=== PATIENT | female | born 1970 | race Hispanic/Latino ===

== ENCOUNTER 2017-05-09 16:55 | Emergency (ER) | payer SELFPAY ==
[2017-05-09] MEDS ORDERED: Ketorolac Tromethamine 30 MG/ML VIAL ONE (18:10)
[2017-05-09] MEDS ORDERED: Methocarbamol 500 MG TAB PO SCH (18:15)
--- NOTE | 2017-05-09 20:09 | RAD ---
LEFT KNEE: 05/09/17 HISTORY: Knee pain. Joint spaces are maintained. Minimal degenerative spurring is seen from the femoral condyles. Minimal degenerative spurring from the posterior patella. No fracture or acute abnormality. No evidence of j oint effusion. IMPRESSION: Minimal degenerative change noted. POS: [facility]
--- NOTE | 2017-05-09 20:17 | ULT ---
LEFT LOWER EXTREMITY VENOUS DUPLEX ULTRASOUND INCLUDING COLOR AND SPECTRAL DOPPLER IMAGIN05/09/17 HISTORY: 46-year-old female with history of left knee pain. Exam performed from groin to ankle including visua lized greater saphenous, common femoral, superficial femoral, profunda femoral, popliteal, trifurcati on, and posterior tibial vein regions. There is phasic flow at all levels with normal compressibility and normal augmentation. No intraluminal thrombus. IMPRESSION: No evidence for deep venous thrombosis. POS: [facility]
--- NOTE | 2017-05-13 00:26 | EKG ---
Test Reason : Blood Pressure : / mmHG Vent. Rate : 064 BPM Atrial Rate : 064 BPM P-R Int : 148 ms QRS Dur : 092 ms QT Int : 416 ms P-R-T Axes : 026 055 034 degrees QTc Int : 429 ms Normal sinus rhythm Normal ECG Confirmed by TAMANNA MOSES ([id number]), online editor WIN HADLEY ([id number]) on 05/13/2017 12:25:30 AM Referred By: Confirmed By:TAMANNA MOSES
== END 2017-05-09 21:27 | disposition home or self-care (01) ==
LOC: ERS 16:55
DX: M17.12 Unilateral primary osteoarthritis, left knee (principal); M25.512 Pain in left shoulder; E11.9 Type 2 diabetes mellitus without complications; E03.9 Hypothyroidism, unspecified; E78.5 Hyperlipidemia, unspecified; I10 Essential (primary) hypertension; J45.909 Unspecified asthma, uncomplicated; F32.9 Major depressive disorder, single episode, unspecified; F17.210 Nicotine dependence, cigarettes, uncomplicated; Z79.82 Long term (current) use of aspirin; Z79.899 Other long term (current) drug therapy; Z79.84 Long term (current) use of oral hypoglycemic drugs
CPT/HCPCS: 93005; 96374; J1885

== ENCOUNTER 2017-05-29 10:33 | Observation (INO) | payer SELFPAY ==
[2017-05-29 10:56] LABS: #Basophils 0.1 thou/uL (0.0-0.2); #Eosinphils 0.1 thou/uL (0.0-0.7); #Lymphocytes 2.4 thou/uL (1.20-3.40); #Monocytes 0.5 thou/uL (0.11-0.59); #Neutrophils 4.5 thou/uL (1.40-6.50); %Eosinophils 1.4 % (0.0-10.0); %Lymphocytes 31.4 % (21.0-51.0); %Neutrophils 60.2 % (42.0-75.0); Hemoglobin 14.1 g/dL (12.0-16.0); Mean Corpuscular HGB CONC 33.8 g/dL (32.0-36.0); Mean Corpuscular Hemoglobin 31.6 pg (27.0-31.0); Mean Corpuscular Volume 93.6 fl (81.0-99.0); Mean Platelet Volume 10.1 fL (7.4-10.4); Platelet Count 188 thou/uL (130-400); RBC Distribution Width 12.2 % (11.5-14.5); Red Blood Cell (RBC) Count 4.47 mill/uL (4.20-5.40); White Blood Cell (WBC) Count 7.5 thou/uL (4.8-10.8)
[2017-05-29 11:05] LABS: PTT 31.1 SEC (22.9-36.1); Prothrombin Time 13.3 SEC (12.0-14.7)
[2017-05-29 11:10] LABS: ALT (SGPT) 24 U/L (8-55); AST (SGOT) 16 U/L (5-34); Albumin 4.5 g/dL (3.5-5.0); Alkaline Phosphatase 94 U/L (40-150); Anion Gap 12 mmol/L (10-20); BUN (Urea Nitrogen) 11 mg/dL (7.0-18.7); Bilirubin, Total 0.4 mg/dL (0.2-1.2); Calc. Creatinine Clearance 0 mL/min (70-130); Calcium 9.4 mg/dL (7.8-10.44); Carbon Dioxide 22 mmol/L (22-29); Chloride 112 mmol/L (98-107); Estimated GFR-MDRD Greater than 90; Glucose 98 mg/dL (70-105); Potassium 4.1 mmol/L (3.5-5.1); Protein, Total 7.5 g/dL (6.0-8.3); Sodium 142 mmol/L (136-145)
[2017-05-29 11:14] LABS: CKMB 1.8 ng/mL (0-6.6); Troponin I Less than 0.010 ng/mL (< 0.028)
--- NOTE | 2017-05-29 11:30 | CT ---
CT BRAIN WITHOUT CONTRAST: HISTORY: Syncope. Left arm and leg weakness. Diabetes. Stroke alert. FINDINGS: No evidence of infarct, hemorrhage, midline shift, or abnormal extraaxial fluid collections are seen. The ventricular size is normal, and the basilar cisterns are patent. The bony calvarium is intact. The visualized paranasal sinuses and mastoid air cells are well aerated. IMPRESSION: No CT evidence of acute intracranial process. The findings were called over the telephone to the ER physician, Dr. Carvajal, at 10:44 a.m. CODE CR POS: [facility]
--- NOTE | 2017-05-29 12:24 | RAD ---
CHEST ONE VIEW: History: 46-year-old female with syncope, left sided weakness. FINDINGS: Monitor leads overlie the chest. Heart size is within normal limits. The lungs are clear. No pneumoni a, edema, pleural effusion or other acute process. POS: [facility]
[2017-05-29 13:52] LABS: Bilirubin Negative (Negative); Blood, Urine Negative (Negative); Clarity CLEAR (Clear); Glucose, Urine (Dipstick) Negative (Negative); Leukocyte Negative (Negative); Nitrite Negative (Negative); Protein, Urine (Dipstick) Negative (Neg-Trace); Specific Gravity, Urine 1.007 (1.002-1.036); Urobilinogen 0.2 mg/dL (0.2-1.0)
[2017-05-29 14:38] LABS: Troponin I Less than 0.010 ng/mL (< 0.028)
--- NOTE | 2017-05-29 15:04 | HP ---
PRIMARY CARE PHYSICIAN: Migdalia Gardner, Nurse Practitioner. REASON FOR ADMISSION: Rule out acute coronary syndrome and rule out stroke. The patient admitted fo r chest pain, syncope and left-sided weakness. HISTORY OF PRESENT ILLNESS: A 46-year-old female, who has underlying history of hypertensio n, dyslipidemia, hypothyroidism, diabetes type 2, and glaucoma. She also has morbid obesity. She molina d an argument at home. Subsequently, she was having chest pain and she passed out at home. She rega ined consciousness in few minutes. When she regained consciousness, at that time, the patient was molina ving left-sided upper and lower extremity weakness. Paramedics noticed that the patient was having l eft-sided weakness, but it was rapidly improved when she was transferred to the hospital. Paramedics were called by family member at home. The patient reported that all the symptoms started after a st ressful argument. Her chest discomfort was about 7/10 in intensity, without any radiation, without a ny association of nausea, vomiting, diaphoresis. She did not have any palpitation, but she was feeli ng dizzy and she passed out. When she regained consciousness, at that time she was perfectly normal. She did not have any seizure type of activity. She did not have any incontinence. The patient als o has left shoulder pain and because of left shoulder pain, she was having difficulty moving left upp er extremity because of pain. In the emergency room, routine blood tests showed normal cardiac enzymes, normal BNP and other blood tests including CBC and BMP came back normal. She also had chest x-ray as well as CT brain and echoc ardiogram, all came back normal. In the emergency room, the patient was back to baseline, but she wa s having difficulty lifting left upper extremity because of left shoulder pain. She denies any traum a. She denies any injury, but she reports that she has arthritis in her shoulder as well as other hola int arthritis and that causing her joint pain. She denies any UTI symptoms. She denies any fever or chills. She denies any previous workup for hea rt. She denies any exertion related chest pain, palpitation or syncope. She denies any constipation , diarrhea, melena or hematochezia. She denies any abdominal pain. She denies any fever or flu-like illness. REVIEW OF SYSTEMS: The following complete review of systems was negative, unless otherwise mentioned in the HPI or below: Constitutional: Weight loss or gain, ability to conduct usual activities. Sk in: Rash, itching. Eyes: Double vision, pain. ENT/Mouth: Nose bleeding, neck stiffness, pain, te nderness. Cardiovascular: Palpitations, dyspnea on exertion, orthopnea. Respiratory: Shortness of breath, wheezing, cough, hemoptysis, fever or night sweats. Gastrointestinal: Poor appetite, abdom inal pain, heartburn, nausea, vomiting, constipation, or diarrhea. Genitourinary: Urgency, frequenc y, dysuria, nocturia. Musculoskeletal: Pain, swelling. Neurologic/Psychiatric: Anxiety, depressio n. Allergy/Immunologic: Skin rash, bleeding tendency. Please see my HPI for pertinent positive and negative. All other review of systems reviewed and nega tive except as mentioned in the HPI. ALLERGIES: No known drug allergies. CURRENT HOME MEDICATIONS: Aspirin 81 mg p.o. daily, Lipitor 40 mg p.o. at bedtime, Celexa 30 mg p.o. daily, gabapentin 100 mg 3 times daily, Atarax 25 mg t.i.d., Synthroid 37.5 mcg p.o. daily, metformi n 500 mg p.o. daily, chlorthalidone 25 mg p.o. daily, Xalatan eyedrops at bedtime, nitroglycerin as n eeded, timolol maleate ophthalmic drop twice daily, ibuprofen 600 mg q.6 hourly p.r.n., Robaxin 500 m g p.o. q.6 hourly p.r.n. PAST MEDICAL HISTORY: Morbid obesity, diabetes type 2, hypothyroidism, hypertension, dyslipidemia, a sthma, history of CVA, glaucoma, osteoarthritis, chronic low back pain. PAST SURGICAL HISTORY: Right knee surgery and appendicectomy. PAST PSYCHIATRIC HISTORY: Anxiety and depression. SOCIAL HISTORY: The patient denies any alcohol abuse, but she smokes about 1 pack per day. She makeda es any other illicit drug abuse. FAMILY HISTORY: Diabetes and hypertension runs among several family members. EMERGENCY ROOM COURSE: Reviewed. PHYSICAL EXAMINATION: VITAL SIGNS: On arrival, blood pressure 165/74, pulse 66, respiratory rate 26, temperature 98.4, sat uration 96% on room air, weight 113.5 kilograms. GENERAL: The patient is currently alert, awake, no obvious acute distress. HEAD: Normocephalic, atraumatic. EYES: Pupils round, reactive to light. Extraocular muscles are intact. ENT: Oropharynx within normal limits. Moist mucous membranes. No oral lesion, no pharyngeal erythe ma, no exudate. NECK: Supple, no JVD, no thyromegaly, no carotid bruit, no jugular venous distention. LUNGS: Clear to auscultation without any rhonchi or rales. CARDIAC: S1, S2 regular. No murmur, no gallop, no rub. ABDOMEN: Soft, bowel sounds present, nontender, nondistended. No organomegaly, no mass, no suprapub ic tenderness. Obesity is limiting examination. BACK: Unremarkable. No CVA tenderness. EXTREMITIES: Upper extremity: The patient does have restriction of range of motion at left shoulder because of arthritis. Otherwise, all other joints are normal. Lower extremity: Passive movement o f all joints are normal. No edema. Good peripheral pulsation. SKIN: No skin rash. HEMATOLOGIC: No lymphadenopathy. PSYCHIATRIC: Normal affect. NEUROLOGIC: The patient is alert, oriented x3. Cranial nerves II-XII intact. Motor is 5/5 in all f our limbs. Sensation is bilaterally symmetrical. No pronators drift. The patient's left-sided diff iculty moving is related with arthritis pain. Speech is normal. Reflexes are symmetrical. Plantar bilateral flexor. No cerebellar sign. SIGNIFICANT LABS: EKG showing normal sinus rhythm, within normal limit. CT brain based on my review , no acute intracranial process. Chest x-ray based on my review, no acute cardiopulmonary process. CBC: WBC 7.5, hemoglobin 14.1, platelet 188. INR is 1.0. BMP: Sodium 142, potassium 4.1, chloride 112, carbon dioxide 22, anion gap 12, BUN 11, creatinine 0.60, glucose 98, calcium 9.4, magnesium 2. 0. LFT: AST 16, ALT 24, alkaline phosphatase 94, albumin 4.5, lipase 12, CK-MB 1.8, troponin I less than 0.010. BNP is 27.0. ASSESSMENT AND PLAN: 1. Chest pain. The patient's chest pain description is atypical, though she has several risk factor s for coronary artery disease. Her probability of coronary artery disease is low. At this point, EK G is normal and cardiac enzymes are negative. Given acute onset of chest pain, we will keep her in [facility] for observation and we will do serial cardiac enzymes x3 to rule out acute coronary syndr ome. Tomorrow, we will perform pharmacological stress test to rule out underlying ischemia. We will check lipid profile for risk stratification. Meanwhile, we will continue with nitropatch q.8 hourly and will monitor on telemetry floor. 2. Syncope. We will obtain echocardiography and we will monitor on telemetry floor for any kind of arrhythmia, most likely vasovagal syncope. We will check orthostatic vitals to rule out any orthosta tic hypotension. 3. Left upper and lower extremity weakness consistent with transient ischemic attack versus rule out cerebrovascular accident. At this point, the patient will be observed on stroke floor. We will do neuro check q.4 hourly. We will obtain MRI brain to rule out any acute intracranial process. The pa tient will be kept on aspirin therapy. 4. Dyslipidemia. Check lipid profile tomorrow and continue Lipitor 40 mg p.o. at bedtime. 5. Anxiety and depression. We will continue Ativan 1 mg q.6 hourly p.r.n. and Celexa 30 mg p.o. sarahi ly. 6. Chronic low back pain as well as osteoarthritis. Continue gabapentin 100 mg 3 times daily and ib uprofen on a p.r.n. basis. 7. Diabetes type 2. We will continue metformin 500 mg p.o. daily. Diabetic diet will be given, ins ulin as per sliding scale per protocol. 8. Hypothyroidism. We will continue Synthroid 37.5 mcg p.o. daily. 9. Glaucoma. We will continue Xalatan eyedrops as well as timolol ophthalmic drops as per home dosa ge. 10. Hypertension. We will continue nitropatch q.8 hourly along with chlorthalidone 25 mg p.o. daily . 11. Morbid obesity. Dietary education given, weight loss education given. Healthy lifestyle measur es discussed with the patient. 12. Deep venous thrombosis prophylaxis not needed because we are expecting discharge in 24 hours. 13. Gastrointestinal prophylaxis, Pepcid 20 mg p.o. b.i.d. 14. Code status: The patient is FULL CODE. The patient does not have any surrogate decision maker. 15. Asthma, mild intermittent. We will continue with albuterol nebulization as needed basis. 16. Tobacco abuse disorder. Smoking cessation counseling given. Healthy lifestyle measures discuss ed with the patient. Disposition plan based on clinical course, likely pending above-mentioned investigation result. Plan of care discussed with the patient and other family member at bedside in the emergency room.
[2017-05-29] MEDS ORDERED: Ondansetron HCl/PF 4 MG/2 ML Vial IVP PRN (15:11)
[2017-05-29] MEDS ORDERED: Ibuprofen 600 MG TAB PO PRN (15:11)
[2017-05-29] MEDS ORDERED: Milk Of Magnesia 30 ML UDCUP PO PRN (15:11)
[2017-05-29] MEDS ORDERED: Mag-Al 1200 mg/1200 mg/30 ML UDCUP PO PRN (15:11)
[2017-05-29] MEDS ORDERED: Eucerin (Mineral Oil/Petrolatum,White) 30 gm Jar TOP PRN (15:11)
[2017-05-29] MEDS ORDERED: HumaLOG 300 UNITS/3 ML VIAL SC PRN ×2 (15:11)
[2017-05-29] MEDS ORDERED: Dextrose 50% Abboject 50 ML SYRINGE SLOW IVP PRN (15:11)
[2017-05-29] MEDS ORDERED: Dextrose 5% in Water 1,000 ML IV PRN (15:11)
[2017-05-29] MEDS ORDERED: Ondansetron ODT 4 MG TAB PO PRN (15:11)
[2017-05-29] MEDS ORDERED: Sodium Chloride 0.65% Nasal 44 ML BOT EA NARE PRN (15:11)
[2017-05-29] MEDS ORDERED: Senokot 8.6 MG TAB PO PRN (15:11)
[2017-05-29] MEDS ORDERED: Loperamide HCl 2 MG CAP PO PRN (15:11)
[2017-05-29] MEDS ORDERED: Artificial Tears 18 DROP/0.9 ML EA EYE PRN (15:11)
[2017-05-29] MEDS ORDERED: Chloraseptic Spray 180 ml Bottle PO PRN (15:11)
[2017-05-29] MEDS ORDERED: hydrOXYzine 25 MG TAB PO PRN (15:11)
[2017-05-29] MEDS ORDERED: Loratadine 10 MG TAB PO PRN (15:11)
[2017-05-29] MEDS ORDERED: Zolpidem Tartrate 5 MG TAB PO PRN (15:11)
[2017-05-29] MEDS ORDERED: Diabetic Tussin 200 MG/10 ML UDCUP PO PRN (15:11)
[2017-05-29] MEDS ORDERED: Methocarbamol 500 MG TAB PO PRN (15:11)
[2017-05-29] MEDS ORDERED: Nitroglycerin 0.4 MG TAB (25 Tab Bottle) PO PRN (15:11)
[2017-05-29] MEDS ORDERED: HYDROcodone/Acetaminophen 10/325 mg Tablet PO PRN (15:11)
[2017-05-29] MEDS: Nitroglycerin 2% Ointment 1 INCH/1 GM Packet TOP SCH ×2 (16:03→23:58)
--- NOTE | 2017-05-29 16:23 | MRI ---
MRI OF BRAIN WITHOUT CONTRAST: 05/29/17 HISTORY: TIA, syncope with left sided weakness. FINDINGS: Correlation is made with CT scan performed at 10:40 a.m. earlier today. No restricted diffusion is seen. No evidence of infarct, hemorrhage, midline shift or abnormal extra- axial fluid collections are noted. Ventricular size is normal and the basilar cisterns patent. There is fluid in the left mastoid air cells. IMPRESSION: No evidence of acute intracranial process. POS: [facility]
[2017-05-29 17:38] VITALS: BMI 43.7
[2017-05-29 18:27] LABS: Troponin I Less than 0.010 ng/mL (< 0.028)
[2017-05-29] MEDS: Atorvastatin Calcium 40 MG TAB PO SCH (20:41)
[2017-05-29] MEDS: Acetaminophen 325 MG TAB PO PRN (20:41)
[2017-05-29] MEDS: Gabapentin 100 MG CAP PO SCH (20:41)
[2017-05-29] MEDS: Famotidine 20 MG TAB PO SCH (20:41)
[2017-05-29] MEDS: Latanoprost 0.005% Ophth Soln 2.5 ml Bottle EA EYE SCH (20:41)
[2017-05-29] MEDS: Timolol 0.5% Ophth Soln 5 ml Bottle EA EYE SCH (22:28)
[2017-05-30] MEDS: Levothyroxine Sodium 75 MCG TAB PO SCH (06:18)
[2017-05-30 06:19] LABS: Cardiac Risk 3.5 (Less than 4.5)
[2017-05-30] MEDS: Nitroglycerin 2% Ointment 1 INCH/1 GM Packet TOP SCH ×2 (09:10→15:00)
--- NOTE | 2017-05-30 10:05 | PDOC.PN ---
- Subjective Encounter Start Date: 05/30/17 Encounter Start Time: 07:00 -: old records requested/rev Patient seen and examined. No new complaints. No overnight events no chest pain, no motor weakness - Objective Resuscitation Status: Resuscitation Status FULL:Full Resuscitation MAR Reviewed: Yes Vital Signs & Weight: Vital Signs (12 hours) Temp Pulse Resp BP Pulse Ox 05/30/17 08:00 97.6 F 56 L 20 157/70 H 97 05/30/17 04:00 97.5 F L 62 20 141/79 H 98 05/30/17 00:00 98.0 F 60 20 158/83 H 98 05/29/17 22:28 65 Weight Weight 239 lb I&O: 05/29/17 05/30/17 05/31/17 06:59 06:59 06:59 Intake Total 700 Balance 700 Result Diagrams: 05/29/17 10:45 05/29/17 10:45 Additional Labs: Accuchecks 05/29/17 05/29/17 21:06 17:03 POC Glucose 139 H 87 Radiology Reviewed by me: Yes (mri- normal) EKG Reviewed by me: Yes (nsr) Phys Exam - Physical Examination Constitutional: NAD HEENT: PERRLA, moist MMs, sclera anicteric Neck: no JVD, supple Respiratory: no wheezing, no rales, no rhonchi Cardiovascular: RRR, no significant murmur, no rub Gastrointestinal: soft, non-tender, no distention, positive bowel sounds obesity+ Musculoskeletal: no edema, pulses present Neurological: non-focal, normal sensation, moves all 4 limbs Lymphatic: no nodes Psychiatric: normal affect, A&O x 3 Skin: no rash, normal turgor Dx/Plan (1) Chest pain Code(s): R07.9 - CHEST PAIN, UNSPECIFIED Status: Acute Comment: today stress test to rule out ischemia (2) Syncope Code(s): R55 - SYNCOPE AND COLLAPSE Status: Acute Qualifiers: Syncope type: vasovagal syncope Qualified Code(s): R55 - Syncope and collapse Comment: mostly vasovagal, no arrythmia (3) TIA (transient ischemic attack) Status: Acute Comment: mri- negative, ruled out CVA (4) Anxiety and depression Code(s): F41.9 - ANXIETY DISORDER, UNSPECIFIED; F32.9 - MAJOR DEPRESSIVE DISORDER, SINGLE EPISODE, UNSPECIFIED Status: Chronic (5) Asthma Code(s): J45.909 - UNSPECIFIED ASTHMA, UNCOMPLICATED Status: Chronic (6) Diabetes type 2, controlled Code(s): E11.9 - TYPE 2 DIABETES MELLITUS WITHOUT COMPLICATIONS Status: Chronic (7) Dyslipidemia Code(s): E78.5 - HYPERLIPIDEMIA, UNSPECIFIED Status: Chronic (8) Hypertension Code(s): I10 - ESSENTIAL (PRIMARY) HYPERTENSION Status: Chronic (9) Hypothyroidism Code(s): E03.9 - HYPOTHYROIDISM, UNSPECIFIED Status: Chronic (10) Tobacco abuse Code(s): Z72.0 - TOBACCO USE Status: Chronic Comment: counselled today (11) Osteoarthritis Code(s): M19.90 - UNSPECIFIED OSTEOARTHRITIS, UNSPECIFIED SITE Status: Chronic Qualifiers: Osteoarthritis location: shoulder Laterality: left (12) Morbid obesity with BMI of 40.0-44.9, adult Code(s): E66.01 - MORBID (SEVERE) OBESITY DUE TO EXCESS CALORIES; Z68.41 - BODY MASS INDEX (BMI) 40.0-44.9, ADULT Status: Chronic - Plan cont current plan of care * today echo * stress test if negative, will consider discharge * medication reviewed as below * symptomatic treatment. Review of Systems - Review of Systems Eyes: negative: Pain, Vision Change, Conjunctivae Inflammation, Eyelid Inflammation, Redness, Other ENT: negative: Ear Pain, Ear Discharge, Nose Pain, Nose Discharge, Nose Congestion, Mouth Pain, Mouth Swelling, Throat Pain, Throat Swelling, Other Respiratory: negative: Cough, Dry, Shortness of Breath, Hemoptysis, SOB with Excertion, Pleuritic Pain, Sputum, Wheezing Cardiovascular: negative: chest pain, palpitations, orthopnea, paroxysmal nocturnal dyspnea, edema, light headedness, other Gastrointestinal: negative: Nausea, Vomiting, Abdominal Pain, Diarrhea, Constipation, Melena, Hematochezia, Other Genitourinary: negative: Dysuria, Frequency, Incontinence, Hematuria, Retention , Other Musculoskeletal: Shoulder Pain. negative: Neck Pain, Arm Pain, Back Pain, Hand Pain, Leg Pain, Foot Pain, Other Skin: negative: Rash, Lesions, Medhat, Bruising, Other - Medications/Allergies Allergies/Adverse Reactions: Allergies Allergy/AdvReac Type Severity Reaction Status Date / Time No Known Allergies Allergy Verified 05/29/17 15:47 Medications: Current Medications Acetaminophen (Tylenol) 650 mg PO Q4H PRN PRN Reason: Headache/Fever or Pain Last Admin: 05/29/17 20:41 Dose: 650 mg Hydrocodone Bitart/Acetaminophen ([place] 10/325) 1 tab PO Q4H PRN PRN Reason: Moderate Pain (4-6) Al Hydroxide/Mg Hydroxide (Maalox) 30 ml PO Q6H PRN PRN Reason: Heartburn or Indigestion Artificial Tears (Tears Naturale) 0 drop EA EYE PRN PRN PRN Reason: Dry Eyes Aspirin (Aspirin) 325 mg PO DAILY [facility] Atorvastatin Calcium (Lipitor) 40 mg PO HS [facility] Last Admin: 05/29/17 20:41 Dose: 40 mg Chlorthalidone (Hygroton) 25 mg PO DAILY [facility] Citalopram Hydrobromide (Celexa) 30 mg PO DAILY [facility] Dextrose/Water (Dextrose 50%) 25 gm SLOW IVP PRN PRN PRN Reason: Hypoglycemia Famotidine (Pepcid) 20 mg PO BID [facility] Last Admin: 05/29/17 20:41 Dose: 20 mg Gabapentin (Neurontin) 100 mg PO TID [facility] Last Admin: 05/29/17 20:41 Dose: 100 mg Glucagon (Glucagon) 1 mg IM PRN PRN PRN Reason: Hypoglycemia Guaifenesin (Robitussin Sf) 200 mg PO Q4H PRN PRN Reason: Cough Hydralazine HCl (Apresoline) 10 mg SLOW IVP Q4H PRN PRN Reason: Systolic BP > 180 Hydroxyzine HCl (Atarax) 25 mg PO Q8H PRN PRN Reason: Itching Dextrose/Water (D5w) 1,000 mls @ 0 mls/hr IV .Q0M PRN; As Directed PRN Reason: Hypoglycemia Ibuprofen (Motrin) 600 mg PO Q6H PRN PRN Reason: Fever>101/(Mi/Mod/Sev) Pain Insulin Human Lispro (Humalog) 0 units SC .MODERATE SLIDING SC PRN PRN Reason: Moderate Correctional Scale Insulin Human Lispro (Humalog) 0 units SC .BEDTIME SLIDING SC PRN PRN Reason: Bedtime Correctional Scale Latanoprost (Xalatan 0.005% Oph Soln) 1 drop EA EYE [facility] Last Admin: 05/29/17 20:41 Dose: 1 drp Levothyroxine Sodium (Synthroid) 37.5 mcg PO 0600 [facility] Last Admin: 05/30/17 06:18 Dose: 37.5 mcg Loperamide HCl (Imodium) 2 mg PO PRN PRN PRN Reason: Diarrhea/Loose Stools Loratadine (Claritin) 10 mg PO DAILYPRN PRN PRN Reason: Sinus Symptoms Magnesium Hydroxide (Milk Of Magnesium) 30 ml PO DAILYPRN PRN PRN Reason: Constipation Metformin HCl (Glucophage) 500 mg PO Q[facility] Methocarbamol (Robaxin) 500 mg PO QID PRN PRN Reason: Muscle Spasm Mineral Oil/White Petrolatum (Eucerin Cream) 0 gm TOP BIDPRN PRN PRN Reason: Dry Skin Nitroglycerin (Nitro-Bid 2% Ointment) 0.5 inch TOP Q8H [facility] Last Admin: 05/30/17 09:10 Dose: Not Given Nitroglycerin (Nitrostat) 0.4 mg PO Q5MIN PRN PRN Reason: Chest Pain Ondansetron HCl (Zofran Odt) 4 mg PO Q6H PRN PRN Reason: Nausea/Vomiting Ondansetron HCl (Zofran) 4 mg IVP Q6H PRN PRN Reason: Nausea/Vomiting Phenol (Chloraseptic [place] 180 Ml Bot) 0 ml PO PRN PRN PRN Reason: Sore Throat Senna (Senokot) 2 tab PO HSPRN PRN PRN Reason: Constipation Sodium Chloride ([place] Nasal [place] 0.65%) 0 ml EA NARE QIDPRN PRN PRN Reason: Nasal Congestion Timolol Maleate (Timoptic 0.5% Ophth Soln) 1 drop EA EYE BID [facility] Last Admin: 05/29/17 22:28 Dose: 1 drp Zolpidem Tartrate (Ambien) 5 mg PO HSPRN PRN PRN Reason: Insomnia
[2017-05-30] MEDS: Citalopram 10 MG TAB PO SCH (12:30)
[2017-05-30] MEDS: metFORMIN 500 MG TAB PO SCH (12:30)
[2017-05-30] MEDS: Aspirin 325 MG TAB PO SCH (12:30)
[2017-05-30] MEDS: Famotidine 20 MG TAB PO SCH ×2 (12:31→21:23)
[2017-05-30] MEDS: Gabapentin 100 MG CAP PO SCH ×3 (12:31→21:24)
[2017-05-30] MEDS: Timolol 0.5% Ophth Soln 5 ml Bottle EA EYE SCH ×2 (12:31→21:23)
[2017-05-30] MEDS: Acetaminophen 325 MG TAB PO PRN (12:32)
[2017-05-30] MEDS: Chlorthalidone 25 MG TAB PO SCH (13:17)
[2017-05-30] MEDS: Latanoprost 0.005% Ophth Soln 2.5 ml Bottle EA EYE SCH (21:23)
[2017-05-30] MEDS: Atorvastatin Calcium 40 MG TAB PO SCH (21:24)
[2017-05-30] MEDS: hydrALAZINE 20 MG/ML VIAL SLOW IVP PRN (21:24)
[2017-05-31] MEDS: Nitroglycerin 2% Ointment 1 INCH/1 GM Packet TOP SCH ×3 (00:06→15:26)
[2017-05-31] MEDS: Levothyroxine Sodium 75 MCG TAB PO SCH (05:17)
[2017-05-31] MEDS: Acetaminophen 325 MG TAB PO PRN ×2 (05:26→10:37)
[2017-05-31] MEDS: Chlorthalidone 25 MG TAB PO SCH (11:41)
[2017-05-31] MEDS: Aspirin 325 MG TAB PO SCH (11:41)
[2017-05-31] MEDS: metFORMIN 500 MG TAB PO SCH (11:41)
[2017-05-31] MEDS: Famotidine 20 MG TAB PO SCH (11:42)
[2017-05-31] MEDS: Timolol 0.5% Ophth Soln 5 ml Bottle EA EYE SCH (11:42)
[2017-05-31] MEDS: Gabapentin 100 MG CAP PO SCH ×2 (11:42→15:26)
[2017-05-31] MEDS: Citalopram 10 MG TAB PO SCH (11:42)
[2017-05-31] MEDS: hydrALAZINE 20 MG/ML VIAL SLOW IVP PRN (11:59)
--- NOTE | 2017-05-31 13:13 | NM ---
CARDIAC SPECT: HISTORY: A 46-year-old female with chest pain, hypertension, hyperlipidemia, syncope, asthma, and diabetes. TECHNIQUE: A myocardial perfusion scan was performed using the single-isotope 2-day protocol with 31 mCi Technet ium 99m sestamibi injected intravenously for rest and stress images. Pharmacologic stress with Gautam can was monitored and interpreted by cardiology. FINDINGS: Homogeneous tracer distribution is seen in the myocardial segments on stress and rest images without fixed or reversible defects. GATED SPECT LVEF: 70%. WALL MOTION EXAM: Normal. IMPRESSION: Normal myocardial perfusion scan. POS: [facility]
[2017-05-31] MEDS ORDERED: Regadenoson 0.4 MG/5 ML SYRINGE ONE (14:41)
[2017-05-31] MEDS ORDERED: hydrOXYzine 25 MG TAB PO PRN (15:08)
[2017-05-31] MEDS ORDERED: Ibuprofen 600 MG TAB PO PRN (15:08)
[2017-05-31] MEDS ORDERED: Nitroglycerin 0.4 MG TAB (25 Tab Bottle) SL PRN (15:08)
[2017-05-31] MEDS ORDERED: Methocarbamol 500 MG TAB PO PRN (15:08)
[2017-05-31] MEDS ORDERED: Non-Formulary Item 1 EACH (Ondansetron Hcl [Zofran] 4 MG) PO PRN (15:08)
[2017-05-31 15:41] VITALS: BP 140/72; TEMP 97.7
[2017-05-31] MEDS ORDERED: metFORMIN 500 MG TAB PO SCH (17:00)
[2017-05-31] MEDS ORDERED: Gabapentin 100 MG CAP PO SCH (21:00)
--- NOTE | 2017-05-31 23:56 | DIS ---
DATE OF ADMISSION: 05/29/2017 DATE OF DISCHARGE: 05/31/2017 PRIMARY CARE PROVIDER: Migdalia Gardner. DISCHARGE DIAGNOSES: 1. Atypical chest pain. 2. Syncope. 3. Left-sided weakness. CONDITION OF PATIENT ON THE DAY OF DISCHARGE: Stable. I assessed Ms. Hager on the day of discharg e. She denies any chest pain or shortness of breath. Vital signs are stable. S1 and S2 are heard, regular. Lungs are clear to auscultation bilaterally. INVESTIGATIONS DURING THIS HOSPITALIZATION: 1. Noncontrast CT scan of the brain on 05/29/2017, which did not show any acute intracranial process . 2. MRI of the brain on 05/29/2017, which did not show any acute intracranial process. 3. Nuclear stress test on 05/30/2017, which was normal. 4. A 2D echocardiogram on 05/30/2017, which showed left ventricular ejection fraction of 55-60%, mil dly dilated left atrium, mild mitral regurgitation and mild tricuspid regurgitation. DISCHARGE MEDICATIONS: Aspirin 81 mg daily, Lipitor 40 mg daily, chlorthalidone 25 mg daily, Celexa 30 mg daily, gabapentin 100 mg 3 times a day, Atarax 25 mg as needed, Motrin 600 mg as needed, Synthr oid 25 mcg daily, metformin 500 mg 2 times a day, methocarbamol 500 mg as needed, nitroglycerin as ne eded and Zofran as needed. HOSPITAL COURSE: Ms. Hager is a pleasant 46-year-old lady who was admitted to [facility] on 05/29/2017 for atypical chest pain, syncope as well as left-sided weakness. She had a normal D-dimer during this hospitalization. She underwent nuclear stress test, which was normal. MRI of the brain did not reveal any acute intracranial process. She is advised to have carotid Dopp lers through her primary care provider as an outpatient. During this hospitalization, she had trigly cerides 154, cholesterol 118, LDL cholesterol 53, and HDL cholesterol 34. Many thanks for allowing me to participate in your patient's care. Please feel free to contact me wi th any questions or concerns. DISCHARGE DESTINATION: Home.
[2017-06-01] MEDS ORDERED: Levothyroxine Sodium 25 MCG TAB PO SCH (06:00)
[2017-06-01] MEDS ORDERED: Chlorthalidone 25 MG TAB PO SCH (09:00)
[2017-06-01] MEDS ORDERED: Atorvastatin Calcium 40 MG TAB PO SCH (09:00)
[2017-06-01] MEDS ORDERED: Citalopram 20 MG TAB PO SCH (09:00)
--- NOTE | 2017-06-04 11:39 | STRESS ---
Acquisition Time: 2017-05-31 09:55:11 Total Exercise Time: 00:01:00 Test Indications: CHEST PAIN Medications: Protocol: LEXISCAN Max HR: 099 BPM 57% of Pred: 172 BPM Max BP: 144/080 mmHG Max Work Load: 1.0 METS RESTING ECG: SINUS BRADYCARDIA AT 55 BPM SYMPTOMS: CHEST PAIN APPROPRIATE BLOOD PRESSURE RESPONSE FOR LEXISCAN ECTOPY: NONE ECG RESPONSE: NO SIGNIFICANT ST CHANGES WITH T-WAVE INVERSION INTERPRETATION: NEGATIVE ECG/AWAIT NUCLEAR IMAGES FOR DEFINITIVE DIAGNOSIS Confirmed by DANIA YEH M.D. ([id number]) on 06/04/2017 11:39:36 AM Referred By: Manjula GARAY Confirmed By:DANIA YEH M.D.
== END 2017-05-31 17:41 | disposition home or self-care (01) ==
LOC: ERS 10:33 → 2SE 12:55
PROVIDERS: ADMIT Internal Medicine; ATTEND Internal Medicine
DX: R07.89 Other chest pain (principal); R55 Syncope and collapse; R29.898 Other symptoms and signs involving the musculoskeletal system; I10 Essential (primary) hypertension; E78.5 Hyperlipidemia, unspecified; E03.9 Hypothyroidism, unspecified; E11.9 Type 2 diabetes mellitus without complications; H40.9 Unspecified glaucoma; J45.909 Unspecified asthma, uncomplicated; M19.90 Unspecified osteoarthritis, unspecified site; F41.9 Anxiety disorder, unspecified; F32.9 Major depressive disorder, single episode, unspecified; F17.210 Nicotine dependence, cigarettes, uncomplicated; E66.01 Morbid (severe) obesity due to excess calories; Z68.41 Body mass index [BMI] 40.0-44.9, adult; Z79.82 Long term (current) use of aspirin; Z79.84 Long term (current) use of oral hypoglycemic drugs; Z79.899 Other long term (current) drug therapy; Z98.890 Other specified postprocedural states; Z86.73 Personal history of transient ischemic attack (TIA), and cerebral infarction without residual deficits; Z82.49 Family history of ischemic heart disease and other diseases of the circulatory system; Z83.3 Family history of diabetes mellitus
CPT/HCPCS: 36415; 36416; 70450; 70496; 70498; 70551; 71045; 78452; 80053; 80061; 81003; 82553; 83690; 83735; 83880; 84484; 85025; 85379; 85610; 85730; 90471; 90732; 93005; 93017; 93306; 96374; 96376; A9500; G0009; G0378; J0360; J2785; Q0162

== ENCOUNTER 2017-06-12 14:58 | Emergency (ER) | payer SELFPAY ==
--- NOTE | 2017-06-12 17:34 | ULT ---
LEFT LOWER EXTREMITY VENOUS DOPPLER WITH SPECTAL ANALYSIS AND COLOR FLOW EVALUATION: Date: 06-12-17 History: Left lower extremity pain and swelling. FINDINGS: Grayscale, color flow, and doppler evaluation with spectral analysis of the left lower extremity veno us structures is performed with 2D imaging. Left lower extremity common femoral, superficial femoral, popliteal, posterior tibial, and greater saphenous and profunda femoral veins are imaged. There is normal lumen compressibility, flow, and augmentation in the visualized deep venous structure s of the left lower extremity. IMPRESSION: No evidence of a DVT involving the visualized deep venous structures left lower extremity. POS: [facility]
== END 2017-06-12 19:00 | disposition home or self-care (01) ==
LOC: ERS 14:58
DX: R60.0 Localized edema (principal); E11.9 Type 2 diabetes mellitus without complications; E03.9 Hypothyroidism, unspecified; E78.5 Hyperlipidemia, unspecified; I10 Essential (primary) hypertension; J45.909 Unspecified asthma, uncomplicated; F32.9 Major depressive disorder, single episode, unspecified; F17.210 Nicotine dependence, cigarettes, uncomplicated; Z71.6 Tobacco abuse counseling
CPT/HCPCS: 99406

== ENCOUNTER 2017-09-10 13:32 | Outpatient (CLI) | payer OTHER | END 2017-09-10 13:33 | disposition home or self-care (01) | LOC: BICRAD 13:32 | DX: R76.11 Nonspecific reaction to tuberculin skin test without active tuberculosis (principal) | CPT/HCPCS: 71046 ==

== ENCOUNTER 2020-07-16 18:36 | Inpatient (IN) | payer SELFPAY ==
[2020-07-16] MEDS ORDERED: Ondansetron PF 4 MG/2 ML Vial IVP PRN (23:59)
[2020-07-16] MEDS ORDERED: Acetaminophen 325 MG TAB PO PRN (23:59)
[2020-07-16] MEDS ORDERED: Ondansetron ODT 4 MG TAB PO PRN (23:59)
[2020-07-17] MEDS ORDERED: Potassium Chloride 20 MEQ TAB PO SCH (00:15)
[2020-07-17 01:11] VITALS: BMI 40.6
[2020-07-17] MEDS ORDERED: Potassium Bicarbonate/Cit Ac 20 MEQ TAB PO SCH (01:15)
[2020-07-17 01:19] LABS: SARS-CoV-2 NAA Rapid Test Not Detected (NotDetected)
[2020-07-17 03:42] LABS: #Lymphocytes 1.6 thou/uL (1.20-3.40); #Monocytes 0.1 thou/uL (0.11-0.59); #Neutrophils 8.7 thou/uL (1.40-6.50); %Basophils 0.3 % (0.0-1.0); %Eosinophils 0.1 % (0.0-10.0); %Lymphocytes 15.2 % (21.0-51.0); %Monocytes 0.6 % (0.0-10.0); %Neutrophils 83.7 % (42.0-75.0); Hemoglobin 14.7 g/dL (12.0-16.0); Mean Corpuscular HGB CONC 33.6 g/dL (32.0-36.0); Mean Corpuscular Hemoglobin 31.3 pg (27.0-31.0); Mean Corpuscular Volume 93.2 fL (78.0-98.0); Mean Platelet Volume 11.2 fL (7.4-10.4); Platelet Count 185 thou/uL (130-400); RBC Distribution Width 12.6 % (11.5-14.5); White Blood Cell (WBC) Count 10.3 thou/uL (4.8-10.8)
[2020-07-17 04:03] LABS: Anion Gap 15 mmol/L (10-20); BUN (Urea Nitrogen) 18 mg/dL (9.8-20.1); Calc. Creatinine Clearance 149 mL/min (70-130); Calcium 10.4 mg/dL (7.8-10.44); Carbon Dioxide 28 mmol/L (22-29); Chloride 98 mmol/L (98-107); Glucose 190 mg/dL (70-105); Potassium 3.8 mmol/L (3.5-5.1); Sodium 137 mmol/L (136-145)
[2020-07-17] MEDS ORDERED: Dextrose 50% Abboject 50 ML SYRINGE SLOW IVP PRN (05:36)
[2020-07-17] MEDS ORDERED: HumaLOG 300 UNITS/3 ML VIAL SC PRN ×2 (05:36)
[2020-07-17] MEDS ORDERED: Dextrose 5% in Water 1,000 ML IV PRN (05:36)
[2020-07-17 11:37] VITALS: TEMP 98.2
== END 2020-07-17 14:19 | disposition home or self-care (01) | DRG 916 ==
LOC: ERS 18:36 → IMCU/EMU 22:25
PROVIDERS: ADMIT Student in an Organized Health Care Education/Training Program; ATTEND Internal Medicine
DX: T88.6XXA Anaphylactic reaction due to adverse effect of correct drug or medicament properly administered, initial encounter (principal); E11.9 Type 2 diabetes mellitus without complications; E78.5 Hyperlipidemia, unspecified; Z20.822 Contact with and (suspected) exposure to COVID-19; T47.1X5A Adverse effect of other antacids and anti-gastric-secretion drugs, initial encounter; I10 Essential (primary) hypertension; E03.9 Hypothyroidism, unspecified; H40.9 Unspecified glaucoma; Z88.8 Allergy status to other drugs, medicaments and biological substances; Z79.899 Other long term (current) drug therapy; Z79.82 Long term (current) use of aspirin; Z79.1 Long term (current) use of non-steroidal anti-inflammatories (NSAID); Z79.890 Hormone replacement therapy; Z79.84 Long term (current) use of oral hypoglycemic drugs
CPT/HCPCS: 0240U; 36415; 36416; 80048; 85025; 99285; J1815